=== PATIENT | female | born 1980 | race Two or more races ===

== ENCOUNTER 2019-10-13 10:35 | Inpatient (IN) | payer MEDICAID ==
[~2019-10-13] VITALS: Ht 162.6 cm; Wt 81.6 kg
[2019-10-13 10:36] VITALS: BP 112/57
[2019-10-13 11:51] LABS: BASOPHILS % (AUTO) 0.3 % (0.0-2.0); EOSINOPHILS % (AUTO) 0.2 % (0.0-4.0); HEMATOCRIT 20.7 % (36-48); LYMPHOCYTES # (AUTO) 1.7 K/uL (2.5-16.5); LYMPHOCYTES % (AUTO) 19.6 % (20.5-51.1); MEAN CORPUSCULAR HEMOGLOBIN 30 pg (27-31); MEAN CORPUSCULAR HGB CONC 34 g/dL (33-37); MEAN CORPUSCULAR VOLUME 88.7 fL (80-94); MONOCYTES # (AUTO) 0.4 K/uL (0.8-1.0); MONOCYTES % (AUTO) 4.1 % (1.7-9.3); NEUTROPHILS # (AUTO) 6.7 K/uL (1.8-7.7); NEUTROPHILS % (AUTO) 75.8 % (42.2-75.2); PLATELET COUNT (AUTO) 290 K/uL (140-450); RED BLOOD CELL COUNT(AUTO) 2.34 MIL/uL (4.20-5.40); RED CELL DISTRIBUTION WIDTH 13.1 % (11.6-13.7); WHITE BLOOD COUNT (AUTO) 8.9 K/uL (4.8-10.8)
[2019-10-13 12:08] LABS: APPEARANCE,URINE SL CLOUDY (CLEAR); BILIRUBIN,URINE NEGATIVE (NEGATIVE); BLOOD, URINE 3+ (NEGATIVE); COLOR,URINE ORANGE (YELLOW); LEUKOCYTE ESTERASE ,URINE TRACE (NEGATIVE); NITRITE, URINE NEGATIVE (NEGATIVE); UGLUCOSE NEGATIVE (NEGATIVE)
[2019-10-13 12:58] LABS: ALBUMIN 3.5 g/dL (3.4-5.0); ANION GAP 11.3 (8-16); CARBON DIOXIDE 25.8 mmol/L (21-32); CREATININE 0.9 mg/dL (0.6-1.3); FREE T4 (FREE THYROXINE) 0.88 ng/dL (0.76-1.46); POTASSIUM 4.1 mmol/L (3.5-5.1); THYROID STIMULATING HORMONE 2.18 uIU/mL (0.34-3.74); TOTAL BILIRUBIN 0.2 mg/dL (0.0-1.0)
[2019-10-13 13:12] LABS: RBC,URINE 80-100 /HPF (0-5)
[2019-10-13] MEDS ORDERED: ACETAMINOPHEN 325 MG TAB PO PRN (13:30)
[2019-10-13] MEDS ORDERED: HYDROcodone/APAP 5/325 MG 1 TAB TAB PO PRN (13:30)
[2019-10-13] MEDS ORDERED: LORazepam 2 MG/ML VIAL IM/IVP PRN (13:30)
[2019-10-13] MEDS ORDERED: DOCUSATE SODIUM 100 MG GELCAP PO PRN (13:30)
[2019-10-13] MEDS ORDERED: MORPHINE SULFATE 2 MG/ML SYR IVP PRN (13:30)
[2019-10-13] MEDS ORDERED: ONDANSETRON 4 MG/2 ML VIAL IM/IVP PRN (13:30)
[2019-10-13] MEDS ORDERED: ZOLPIDEM 5 MG TAB PO PRN (13:30)
[2019-10-13 13:33] LABS: PROTHROMBIN TIME 9.7 secs (10.8-13.4)
[2019-10-13] MEDS: NACL 0.9% 1,000 ML IV SCH (13:50)
[2019-10-13 14:11] LABS: BARBITURATE, URINE NEGATIVE ng/ml (NEG <=200); BENZODIAZEPINE, URINE NEGATIVE ng/mL (NEG <=200); CANNABINOID, URINE NEGATIVE ng/mL (NEG <=50); COCAINE, URINE NEGATIVE ng/mL (NEG <=300); OPIATE, URINE NEGATIVE ng/mL (NEG <=2000); PHENCYCLIDINE SCREEN,URINE NEGATIVE ng/mL (NEG <=25)
[2019-10-13 14:24] LABS: MAGNESIUM 1.7 mg/dL (1.8-2.4); THYROID STIMULATING HORMONE 2.32 uIU/mL (0.34-3.74)
[2019-10-13 15:30] VITALS: BP 103/60
[2019-10-13] MEDS ORDERED: MAGNESIUM OXIDE 400 MG TAB PO SCH (17:00)
[2019-10-13 20:00] VITALS: BP 100/57
[2019-10-13] MEDS ORDERED: SODIUM FERRIC GLUCONATE 125 MG in NACL 0.9% 100 ML IV SCH (21:00)
[2019-10-13] MEDS ORDERED: IBUPROFEN 800 MG TAB PO PRN (21:55)
[2019-10-13] MEDS: MISOPROSTOL 100 MCG TAB PO SCH (23:32)
[2019-10-14] VITALS: BP 108/59
[2019-10-14 04:00] VITALS: BP 104/58
[2019-10-14] MEDS: MISOPROSTOL 100 MCG TAB PO SCH ×2 (05:02→12:32)
[2019-10-14 06:20] LABS: ANION GAP 12.4 (8-16); CARBON DIOXIDE 25.3 mmol/L (21-32); CREATININE 0.9 mg/dL (0.6-1.3); POTASSIUM 3.7 mmol/L (3.5-5.1)
[2019-10-14 06:30] LABS: CHOL/HDL RATIO 4.1 (1-4.5)
[2019-10-14 06:33] LABS: BASOPHILS # (AUTO) 0.1 K/uL (0.00-0.22); BASOPHILS % (AUTO) 0.6 % (0.0-2.0); EOSINOPHILS # (AUTO) 0.1 K/uL (0-0.4); EOSINOPHILS % (AUTO) 1.5 % (0.0-4.0); HEMOGLOBIN 7.8 g/dL (12.0-16.0); LYMPHOCYTES # (AUTO) 2.8 K/uL (2.5-16.5); MEAN CORPUSCULAR HEMOGLOBIN 30 pg (27-31); MEAN CORPUSCULAR HGB CONC 34 g/dL (33-37); MEAN CORPUSCULAR VOLUME 88.3 fL (80-94); MONOCYTES # (AUTO) 0.5 K/uL (0.8-1.0); MONOCYTES % (AUTO) 6.8 % (1.7-9.3); NEUTROPHILS # (AUTO) 4.4 K/uL (1.8-7.7); NEUTROPHILS % (AUTO) 56.1 % (42.2-75.2); PLATELET COUNT (AUTO) 274 K/uL (140-450); RED CELL DISTRIBUTION WIDTH 13.1 % (11.6-13.7); WHITE BLOOD COUNT (AUTO) 7.9 K/uL (4.8-10.8)
[2019-10-14 08:00] VITALS: BP 102/60
[2019-10-14 09:15] LABS: FOLIC ACID > 20.00 ng/mL (>3.0); TRANSFERRIN 280 mg/dL (192-364)
[2019-10-14] MEDS ORDERED: LACTOBACILLUS RHAMNOSUS GG 1 EACH CAP PO SCH (11:30)
[2019-10-14 11:53] LABS: FERRITIN 5 ng/mL (15 - 150)
[2019-10-14 12:00] VITALS: BP 104/51
[2019-10-14] MEDS ORDERED: DEXTROSE 50% 50 ML SYR IVP PRN (12:00)
[2019-10-14] MEDS ORDERED: INSULIN LISPRO SLIDING SCALE 100 UNITS/ML VIAL SUBQ PRN (12:00)
[2019-10-14] MEDS: NACL 0.9% 1,000 ML IV SCH (13:30)
[2019-10-14] MEDS ORDERED: SULF-58 PO (15:15)
[2019-10-14 15:37] VITALS: BP 104/51
[2019-10-14 16:00] VITALS: BP 106/64
[2019-10-14] MEDS ORDERED: BLOOD GLUCOSE MONITORING 1 DEV DEV FS SCH (16:30)
[2019-10-15] MEDS ORDERED: NITR100C7 PO (10:06)
== END 2019-10-14 16:55 | disposition home or self-care (01) | DRG 564 ==
LOC: MED 10:35 → MTU 13:18
PROVIDERS: ADMIT General Practice; ATTEND General Practice
PROC: 30233N1 Transfusion of Nonautologous Red Blood Cells into Peripheral Vein, Percutaneous Approach (ICD-10-PCS; principal; 2019-10-13)
DX: O03.9 Complete or unspecified spontaneous abortion without complication (principal); D62 Acute posthemorrhagic anemia; E83.51 Hypocalcemia; E66.9 Obesity, unspecified; E83.42 Hypomagnesemia; N93.8 Other specified abnormal uterine and vaginal bleeding; N83.202 Unspecified ovarian cyst, left side; Z88.0 Allergy status to penicillin; Z83.3 Family history of diabetes mellitus; Z68.30 Body mass index [BMI] 30.0-30.9, adult
CPT/HCPCS: 36415; 76817; 80048; 80053; 80305; 81001; 82607; 82728; 82746; 82948; 83036; 83540; 83690; 83735; 84100; 84134; 84439; 84443; 84702; 85025; 85045; 85610; 86886; 86900; 86901; 86920; 87081; 87086; 93005; 99285; J0696; J1815; J2916; J7060; P9016; Q0092

== ENCOUNTER 2019-10-29 15:30 | Outpatient (CLI) | payer MEDICAID, SELFPAY ==
[~2019-10-29 15:30] MED LIST: NITR100C7 PO; SULF-58 PO
== END 2019-10-29 20:23 | disposition home or self-care (01) ==
LOC: MLB 15:30
PROVIDERS: ATTEND Obstetrics & Gynecology
DX: Z01.818 Encounter for other preprocedural examination (principal); Z11.59 Encounter for screening for other viral diseases
CPT/HCPCS: C9803; U0003; 36415

== ENCOUNTER 2019-11-03 10:09 | Day surgery (SDC) | payer MEDICAID ==
[~2019-11-03] VITALS: Ht 157.5 cm; Wt 72.6 kg
[2019-11-03 10:44] LABS: BASOPHILS # (AUTO) 0.1 K/uL (0.00-0.22); BASOPHILS % (AUTO) 1.1 % (0.0-2.0); EOSINOPHILS # (AUTO) 0.2 K/uL (0-0.4); EOSINOPHILS % (AUTO) 3.1 % (0.0-4.0); HEMATOCRIT 26.5 % (36-48); HEMOGLOBIN 8.6 g/dL (12.0-16.0); LYMPHOCYTES # (AUTO) 2.7 K/uL (2.5-16.5); LYMPHOCYTES % (AUTO) 41.5 % (20.5-51.1); MEAN CORPUSCULAR HEMOGLOBIN 28 pg (27-31); MEAN CORPUSCULAR HGB CONC 32 g/dL (33-37); MEAN CORPUSCULAR VOLUME 86.1 fL (80-94); MONOCYTES # (AUTO) 0.5 K/uL (0.8-1.0); MONOCYTES % (AUTO) 7.1 % (1.7-9.3); NEUTROPHILS # (AUTO) 3.1 K/uL (1.8-7.7); NEUTROPHILS % (AUTO) 47.2 % (42.2-75.2); PLATELET COUNT (AUTO) 438 K/uL (140-450); RED BLOOD CELL COUNT(AUTO) 3.08 MIL/uL (4.20-5.40); RED CELL DISTRIBUTION WIDTH 14.3 % (11.6-13.7); WHITE BLOOD COUNT (AUTO) 6.5 K/uL (4.8-10.8)
[2019-11-03 11:16] LABS: ANION GAP 12.2 (8-16); CARBON DIOXIDE 27.8 mmol/L (21-32)
[2019-11-03 11:17] LABS: CREATININE 0.8 mg/dL (0.6-1.3)
[2019-11-03] MEDS ORDERED: DEXAMETHASONE 4 MG/ML VIAL ONE (12:23)
[2019-11-03] MEDS ORDERED: PROPOFOL 200 MG/20 ML VIAL IV ONE (12:23)
[2019-11-03] MEDS ORDERED: SEVOFLURANE 250 ML BTL INH ONE (12:23)
== END 2019-11-03 14:47 | disposition home or self-care (01) ==
LOC: MMU 10:09 → MDS 10:09
PROVIDERS: ATTEND Obstetrics & Gynecology
DX: N92.0 Excessive and frequent menstruation with regular cycle (principal); N84.0 Polyp of corpus uteri; R93.89 Abnormal findings on diagnostic imaging of other specified body structures; E11.9 Type 2 diabetes mellitus without complications; Z88.0 Allergy status to penicillin; Z79.899 Other long term (current) drug therapy; Z98.890 Other specified postprocedural states; Z83.3 Family history of diabetes mellitus
CPT/HCPCS: 36415; 58558; 80048; 81025; 85025; 86886; 86900; 86901; 88305; J1100; J2704; J7120

== ENCOUNTER 2019-12-30 05:08 | Inpatient (IN) | payer MEDICAID, SELFPAY ==
[~2019-12-30] VITALS: Ht 152.4 cm; Wt 79.4 kg
[2019-12-30] MEDS ORDERED: CLINDAMYCIN 900 MG in DEXTROSE 5% 100 ML IV SCH (05:20)
[2019-12-30 06:08] LABS: APPEARANCE,URINE CLOUDY (CLEAR); BILIRUBIN,URINE 1+ (NEGATIVE); BLOOD, URINE 3+ (NEGATIVE); COLOR,URINE BROWN (YELLOW); LEUKOCYTE ESTERASE ,URINE NEGATIVE (NEGATIVE); NITRITE, URINE POSITIVE (NEGATIVE); PH,URINE 5.5 (5.0-9.0); UGLUCOSE NEGATIVE (NEGATIVE)
[2019-12-30 06:09] LABS: BASOPHILS # (AUTO) 0.1 K/uL (0.00-0.22); BASOPHILS % (AUTO) 0.7 % (0.0-2.0); EOSINOPHILS # (AUTO) 0.3 K/uL (0-0.4); EOSINOPHILS % (AUTO) 4.2 % (0.0-4.0); HEMATOCRIT 32.8 % (36-48); HEMOGLOBIN 10.7 g/dL (12.0-16.0); LYMPHOCYTES # (AUTO) 3.1 K/uL (2.5-16.5); LYMPHOCYTES % (AUTO) 44.8 % (20.5-51.1); MEAN CORPUSCULAR HEMOGLOBIN 27 pg (27-31); MEAN CORPUSCULAR HGB CONC 33 g/dL (33-37); MEAN CORPUSCULAR VOLUME 83.7 fL (80-94); MONOCYTES # (AUTO) 0.6 K/uL (0.8-1.0); NEUTROPHILS # (AUTO) 2.9 K/uL (1.8-7.7); NEUTROPHILS % (AUTO) 42.3 % (42.2-75.2); PLATELET COUNT (AUTO) 299 K/uL (140-450); RED BLOOD CELL COUNT(AUTO) 3.91 MIL/uL (4.20-5.40); RED CELL DISTRIBUTION WIDTH 17.2 % (11.6-13.7); WHITE BLOOD COUNT (AUTO) 6.9 K/uL (4.8-10.8)
[2019-12-30] MEDS ORDERED: CLINDAMYCIN 900 MG/6 ML VIAL IV ONE ×2 (06:10→21:51)
[2019-12-30 06:24] LABS: RBC,URINE TOO NUMEROUS TO COUN /HPF (0-5); WBC,URINE NONE SEEN /HPF (0-5)
[2019-12-30 06:25] LABS: YEAST,URINE Few /HPF (None Seen)
[2019-12-30 06:48] LABS: ALBUMIN 3.7 g/dL (3.4-5.0); ANION GAP 16.5 (8-16); CARBON DIOXIDE 23.3 mmol/L (21-32); CREATININE 0.8 mg/dL (0.6-1.3); POTASSIUM 3.8 mmol/L (3.5-5.1); TOTAL BILIRUBIN 0.3 mg/dL (0.0-1.0)
[2019-12-30] MEDS ORDERED: MEPERIDINE 25 MG/ML SYR IVP PRN (07:20)
[2019-12-30] MEDS ORDERED: ONDANSETRON 4 MG/2 ML VIAL IVP PRN (07:20)
[2019-12-30] MEDS ORDERED: MORPHINE SULFATE 4 MG/ML SYR ONE (07:22)
[2019-12-30] MEDS ORDERED: PROPOFOL 200 MG/20 ML VIAL IV ONE (07:22)
[2019-12-30] MEDS ORDERED: ROCURONIUM 50 MG/5 ML VIAL IV ONE (07:22)
[2019-12-30] MEDS ORDERED: SUCCINYLCHOLINE CHLORIDE 200 MG/10 ML VIAL IVP ONE (07:22)
[2019-12-30] MEDS ORDERED: SEVOFLURANE 250 ML BTL INH ONE (07:22)
--- NOTE | 2019-12-30 08:59 | NUR ---
PATIENT HAS BEEN SCREENED AND CATEGORIZED LOW NUTRITION RISK. PATIENT WILL BE SEEN WITHIN 7 DAYS OF ADMISSION. 01/05/[address]
[2019-12-30 10:07] VITALS: BP 118/70
--- NOTE | 2019-12-30 10:07 | NUR ---
RECEIVED ENDORSEMENT FROM OR NURSE THIS 39 YR OLD FEMALE, LAO SPEAKING, S/P SUPRACERVICAL ABDOMINAL HYSTERECTOMY AND BILATERAL SALPHINGOECTOMY, ALERT, AWAKE, ORIENTEDX4, BREATHING SPONTANEOUSLY AT ROOM AIR, BILATERAL CHEST CLEAR, SATURATING AT 97%, WITH IV CANNULA 20 AT LEFT CEPHALIC VEIN NOTED, SKIN WARM, PALE AND DRY, DRY AND INTACT DRESSING POST OPERATIVE SITE NOTED, WITH CARRILLO CATHER F16 ATTACHED TO URINE BAG DRAINING TO A CLEAR YELLOW URINE NOTED. SAFETY MEASURES PROVIDED AND INSTRUCTED TO PRESS THE CALL AGARWAL NEEDED.
[2019-12-30] MEDS: NACL 0.9% 1,000 ML IV SCH ×3 (10:15→23:56)
[2019-12-30] MEDS: HYDROmorphone 1 MG/ML AMP IVP PRN ×3 (10:28→22:13)
--- NOTE | 2019-12-30 10:29 | NUR ---
COMPLAINED OF MODERATE POST OPERATIVE SITE PAIN, FACIAL GRIMACED NOTED. PRN MEDICATION GIVEN ORDERED GIVEN.
--- NOTE | 2019-12-30 11:31 | NUR ---
VERBALIZED MINIMAL POST OP PAIN AFTER 1 HOUR GIVING THE ANALGESIC, CONTINUE MONITOR.
--- NOTE | 2019-12-30 12:10 | NUR ---
VITAL SIGNS TAKEN AND RECORDER, WITH IN NORMAL RANGE.
--- NOTE | 2019-12-30 13:57 | NUR ---
WATER OFFERED, ABLE SIPS AND TOLERATED WELL. POST OP MINIMAL PAIN CLAIMED AGGRAVATES WHEN MOVING.
--- NOTE | 2019-12-30 15:11 | NUR ---
PATIENT IS CURRENTLY AWAKE WITH NO SIGNS OF DISTRESS AT THIS TIME. PATIENT STATES THAT SHE FEELS THAT HER BLADDER IS FULL. SPREAD PATIENTS LEGS AND READJUSTED CARRILLO CATHETER AND URINE STARTED TO COME OUT. SAFETY MEASURES IN PLACE AND WILL CONTINUE TO MONITOR PLAN OF CARE.
[2019-12-30 16:00] VITALS: BP 134/75
--- NOTE | 2019-12-30 17:29 | NUR ---
ADMINISTERED PAIN MEDICATION FOR ABD PAIN. PATIENT STATES THAT SHE WANTS SOMETHING WARM FOR HER THROAT. TEA HAS BEEN GIVEN. SAFETY MEASURES IN PLACE AND WILL REASSESS PAIN LEVEL IN ONE HOUR.
--- NOTE | 2019-12-30 19:20 | NUR ---
ENDORSED TO MILL HAND NURSE. PATIENT IS IN STABLE CONDITION AND LAYING IN BED AWAKE.
--- NOTE | 2019-12-30 19:21 | NUR ---
RECEIVED REPORT FROM AM RN PT IS STABLE IN NO DISTRESS. WILL CONTINUE WITH POC.
--- NOTE | 2019-12-30 22:20 | NUR ---
PT IS LAYING SUPINE RESPIRATION EVEN AND UNLABORED . PT REPORTED DISCOMFORT /10 TO SURGICAL SITE AND WAS GIVEN DILAUDID 0.5 MG PER MD ORDER. SURGICAL SITE DRESSING IS CLEAN AND DRY, DOLLY IN PLACE NO BLEEDING NO DISCHARGE. PT EXPRESSED CONCERN WITH BEING UNABLE TO VOID HOWEVER CARRILLO CATH DRAINING AND EMPTIED 1000 ML. CARRILLO CATH READJUSTED AND CHECKED FOR LEAKING NO LEAKING OBSERVED PT IS DRY, WILL CONTINUE TO MONITOR TO MAKE SURE IT IS DRAINING.
--- NOTE | 2019-12-30 23:30 | NUR ---
PT IS RESTING IN BED SUPINE RESPIRATION EVEN AND UNLABORED, IN NO DISTRESS. SP02 AT 95% RA. MUSCLES ARE RELAXED EYES CLOSED. CARRILLO CATHETER IS DRAINING YELLOW URINE WITH 200ML IN BAG. WILL CONTINUE TO MONITOR. ALL NEEDS MET AT THIS TIME.
[2019-12-31] VITALS: BP 122/71
--- NOTE | 2019-12-31 00:20 | NUR ---
PT IS RESTING IN BED SUPINE IN NO DISTRESS. RESPIRATION EVEN AND UNLABORED. V/S: 97.9, 80, 16, 122/71,96 % RA PAIN 0/10. REMAINS ON IV FLUIDS NS AT 120 ML/HR AND CARRILLO CATHETER DRAINING YELLOW URINE. ALL NEEDS MET AT THIS TIME. WILL CONTINUE TO MONITOR.
--- NOTE | 2019-12-31 02:00 | NUR ---
PT RESTING IN BED IN NO DISTRESS. RESPIRATION EVEN AND UNLABORED SPO2 96% RA WILL CONTINUE TO MONITOR
[2019-12-31] MEDS: HYDROmorphone 1 MG/ML AMP IVP PRN (03:02)
[2019-12-31] MEDS: NACL 0.9% 1,000 ML IV SCH ×2 (03:04→16:36)
--- NOTE | 2019-12-31 04:10 | NUR ---
PT RESTING IN BED IN NO DISTRESS. RESPIRATION EVEN AND UNLABORED. V/S: 98.6., 89, 18, 128/67, 96 % RA PT. REPORTED PAIN 7/10 AT 0305 AND RECEIVED DILAUDID 0.5MG PER MD ORDER. CURRENTLY PAIN 0/10. PRN EFFECTIVE. PT RESTING WITH EYES CLOSED NO INDICATOR OF PAIN. CALL LIGHT WITHIN REACH. CONTINUED ON IVF NS AT 120ML/HR. WILL CONTINUE TO MONITOR.
--- NOTE | 2019-12-31 06:31 | NUR ---
PT RESTING IN BED AWAKE IN NO DISTRESS. DENIES ANY PAIN AT THIS TIME. ASSISTED WITH ADL'S CALL LIGHT WITHIN REACH. WILL CONTINUE TO MONITOR.
--- NOTE | 2019-12-31 07:00 | NUR ---
RECEIVED PATIENT FROM MANGANESE HEATER NURSE. PATIENT IS CURRENTLY AWAKE AND LAYING IN BED WITH NO SIGNS OF DISTRESS. RESPIRATIONS ARE EVEN AND UNLABORED ON ROOM AIR WITH NO DIFFICULTIES BREATHING. SKIN IS INTACT MINUS LOWER ABDOMINAL SURGICAL INCISION WITH DRESSING DRY AND INTACT. PATIENT DOES NOT COMPLAIN OF ANY PAIN AT THIS TIME, SAFETY MEASURES IN PLACE AND WILL CONTINUE TO MONITOR.
--- NOTE | 2019-12-31 07:10 | NUR ---
REPORT GIVEN TO AM RN FOR CONTINUITY OF CARE. PT IS STABLE ALL NEEDS ARE MET AT THIS TIME.
[2019-12-31 08:00] VITALS: BP 121/76
[2019-12-31] MEDS ORDERED: BENZOCAINE/MENTHOL 1 LOZ MM PRN (08:05)
[2019-12-31] MEDS: MORPHINE SULFATE 2 MG/ML SYR IVP PRN ×2 (08:52→21:14)
--- NOTE | 2019-12-31 08:59 | NUR ---
ADMINISTERED PAIN MEDICATION PER ORDER AND TOLERATED WELL. PATIENT ASKED IF SHE CAN WALK TO THE RESTROOM. ORDER HAS ALSO BEEN PLACED TO ASIYA CARRILLO. SAFETY MEASURES IN PLACE AND WILL CONTINUE TO MONITOR.
[2019-12-31] MEDS: POLYETHYLENE GLYCOL 17 GM/PKT PO SCH ×2 (09:11→20:07)
--- NOTE | 2019-12-31 09:25 | NUR ---
ADMINISTERED MEDICATIONS PER ORDER AND TOLERATED WELL. CARRILLO HAS BEEN TAKEN OUT WITH NO COMPLAINTS OF PAIN. PATIENT IS CURRENTLY AWAKE AND SITTING UP IN BED. SAFETY MEASURES IN PLACE AND WILL CONTINUE TO MONITOR PLAN OF CARE.
[2019-12-31] MEDS ORDERED: FLUCONAZOLE 200 MG/NS PREMIX 100 ML IV SCH (09:30)
--- NOTE | 2019-12-31 10:20 | NUR ---
PATIENT NEEDED ASSISTANCE WITH GOING TO THE RESTROOM. PATIENT ALSO ASKED FOR A NEW MENSTRUAL PAD WELL DISPOSABLE UNDERWEAR. SAFETY MEASURES IN PLACE AND WILL CONTINUE TO MONITOR.
--- NOTE | 2019-12-31 10:57 | NUR ---
SENIOR MOBILE APPLICATION DEVELOPER NOTE: Patient's Orientation Unable To Assess Information Provided By MICHELE MONDRAGON Comments SW WAS UNABLE TO MEET PATIENT AT BEDSIDE DUE TO MEDICAL CONDITION. Senior Quality Manager, Realtionship and Phone Number MICHELE LEUNGN [phone] Healthcare Power of Information Delivery Analyst No Does Patient Have a POLST No Identifying Problems No Social Work Triggers Is A Social Work Consult Needed No Mandate Report Filed No Explanation Of Identifying Problems PATIENT IS A 39-YEAR-OLD FEMALE ADMITTED FOR MENORRHAGIA. PATIENT HAS NO PERTINENT PMHX. Admitted From Home Pre-Admission Level Of Functioning Status Independent/Ambulatory Prior Resources/Services Used In Last 12 Months No Prior Resources Used Prior DME No Prior DME Used Living Situation Apartment Lives With Family Patient Had Caregiver No Home Support No Caregiver Issues Financial Issues No Known Financial Issue Referral To The Financial Counselor Needed No Factors/Needs No D/C Needs Identified Pt/Rep Participated In Discharge Plan Yes Patient/Family Agress With Discharge Plan Yes Discharge Plan Comments TENTATIVE DISCHARGE PLAN IS FOR PATIENT TO RETURN HOME. DC Plan Status Initiated
--- NOTE | 2019-12-31 11:47 | NUR ---
DC [age] YRS OLD FEMALE PATIENT WAS ADMITTED FROM HOME WITH A DX OF MENORRHAGIA . PT HAS A HX OF UNRESPONSIVE TO MEDICAL TREATMENT ,SYMPTOMATIC ANEMIA. DR ANDERSEN PERFORMED SUPRACERVICAL HYSTERECTOMY. PT IS POD #1 TOLERATED WELL. DC PLAN TO GO HOME WHEN STABLE CM TO FOLLOW
--- NOTE | 2019-12-31 12:57 | NUR ---
PATIENT ASKED FOR ASSISTANCE TO USE THE RESTROOM. PATIENT STATES THAT SHE IS IN A LOT OF PAIN. PAIN MEDICATION IS NOT DUE UNTIL 3. SAFETY MEASURES IN PLACE AND WILL CONTINUE TO MONITOR.
--- NOTE | 2019-12-31 14:36 | NUR ---
PATIENT ASKED FOR HELP TO USE THE RESTROOM. PATIENT STATES THAT SHE IS IN PAIN AT THIS TIME. SAFETY MEASURES IN PLACE AND WILL CONTINUE TO MONITOR.
--- NOTE | 2019-12-31 15:08 | NUR ---
ADMINISTERED PAIN MEDICATION FOR ABD PAIN OF 7/10. PATIENT STATES THAT SHE WANTS TO GO HOME. SAFETY MEASURES IN PLACE AND WILL CONTINUE TO MONITOR.
--- NOTE | 2019-12-31 15:34 | NUR ---
ENDORSED PATIENT TO DAY SHIFT NURSE DARYA. PATIENT IS CURRENTLY WALKING AROUND ROOM WITH NO SIGNS OF DISTRESS. PATIENT STATES THAT SHE WOULD LIKE TO GO HOME. SAFETY MEASURES IN PLACE AND WILL CONTINUE TO MONITOR.
--- NOTE | 2019-12-31 15:46 | NUR ---
RECEIVED PATIENT FROM DAY SHIFT NURSE. PATIENT IS CURRENTLY AWAKE AND LAYING IN BED WITH NO SIGNS OF DISTRESS. RESPIRATIONS ARE EVEN AND UNLABORED ON ROOM AIR WITH NO DIFFICULTIES BREATHING. SKIN IS INTACT MINUS LOWER ABDOMINAL SURGICAL INCISION WITH DRESSING DRY AND INTACT. PATIENT DOES NOT COMPLAIN OF ANY PAIN AT THIS TIME, SAFETY MEASURES IN PLACE AND WILL CONTINUE TO MONITOR.
[2019-12-31 16:16] VITALS: BP 121/83
--- NOTE | 2019-12-31 16:26 | NUR ---
PT AMBULATING AROUND ROOM. NO ACUTE DISTRESS NOTED. PT OCCASIONALLY USING INCENTIVE SPIROMETER. WILL CONTINUE TO MONITOR.
[2019-12-31] MEDS: NITROFURANTOIN 100 MG CAP PO SCH (16:42)
--- NOTE | 2019-12-31 16:51 | NUR ---
ADMINISTERED SCHEDULED MEDICATIONS. HUNG NEW NS BAG. PT AMBULATING AROUND ROOM. NO ACUTE DISTRESS NOTED.
--- NOTE | 2019-12-31 18:57 | NUR ---
PT AMBULATED TO BATHROOM. NO ACUTE DISTRESS NOTED. WILL CONTINUE TO MONITOR.
--- NOTE | 2019-12-31 19:15 | NUR ---
ENDORSED PT TO NIGHT RN, TERRELL, FOR CONTINUITY OF CARE. PT IN STABLE POSITION, SITTING ON SIDE OF BED. NO ACUTE DISTRESS NOTED.
--- NOTE | 2019-12-31 19:16 | NUR ---
RECEIVED PT IN STABLE CONDITION FROM AM NURSE. AWAKE,ALERT AND ORIENTED X4. MED SURG PT. WITH SOME DISCOMFORT NOTED DUE TO C/O GAS. ENCOURAGED TO AMBULATE WHICH SHE ALREADY DID. HAS IVF INFUSING WELL ON THE LT HAND G322. ABDOMINAL DRESSING CLEAN AND DRY. FREQ ROUNDS NEEDED. BED ON LOW POSITION. SIDE RAILS UP X2. CALL LIGHT WIHTIN EASY REACH. WILL CONTINUE TO MONITOR.
--- NOTE | 2019-12-31 20:00 | NUR ---
MADE ROUNDS. PT STANDING UP. C/O GAS. ENCOURAGED TO AMBULATE MORE. VERBALIZED UNDERSTANDING.
--- NOTE | 2019-12-31 21:14 | NUR ---
PT C/O POST OP PAIN. MEDICATE ORDERED. WILL CONTINUE TO MONITOR.
--- NOTE | 2019-12-31 21:19 | NUR ---
PT ALSO C/O SORE THROAT. CEPACOL LOZENGES GIVEN ORDERED. WILL CONTINUE TO MONITOR.
--- NOTE | 2019-12-31 22:14 | NUR ---
MADE ROUNDS.PT ASLEEP. NO S/S OF ANY DISCOMFORT NOR PAIN NOTED. WILL CONTINUE TO MONITOR.
[2020-01-01] VITALS: BP 113/66
--- NOTE | 2020-01-01 00:30 | NUR ---
MADE ROUNDS. ASLEEP. NOS/S OF ANY DISCOMFORT /PAIN NOTED.
--- NOTE | 2020-01-01 02:00 | NUR ---
M,CANDIDO ROUNDS. PT IS SLEEPING WELL. NO S/S OF PAIN NOTED.
[2020-01-01] MEDS: NACL 0.9% 1,000 ML IV SCH ×2 (02:50→09:16)
[2020-01-01 04:20] VITALS: BP 125/82
--- NOTE | 2020-01-01 04:20 | NUR ---
PT GOT UP TO THE BATHROOM ,VOIDED AND PASSED SOME GAS. C/O PAIN AFTER. WILL MEDICATE ORDERED.
[2020-01-01] MEDS: MORPHINE SULFATE 2 MG/ML SYR IVP PRN ×2 (04:23→10:42)
--- NOTE | 2020-01-01 05:23 | NUR ---
MADE ROUNDS. PT IS ASLEEP. NO MORE S/S OF ANY PAIN NOTED.
--- NOTE | 2020-01-01 07:00 | NUR ---
CHECKED ON PT. SLEEPING. IVF STILL INFUSING WELL . WILL ENDORSED PT TO AM NURSE IN STABLE CONDITION.
--- NOTE | 2020-01-01 07:15 | NUR ---
RECEIVED PT IN STABLE CONDITION FROM ARMHOLE BASTER HAND NURSE FOR CONTINUITY OF CARE. AAOX4. MED SURG PT. WITH SOME DISCOMFORT NOTED DUE TO C/O GAS. ENCOURAGED TO AMBULATE WHICH SHE ALREADY DID. RESPIRATIONS EVEN AND UNLABORED ON RA. HAS IVF INFUSING WELL ON THE LT HAND G22. ABDOMINAL DRESSING CLEAN AND DRY. FREQ ROUNDS NEEDED. BED ON LOW POSITION. SIDE RAILS UP X2. POC DISCUSSED. CALL LIGHT WITHIN EASY REACH. WILL CONTINUE TO MONITOR.
--- NOTE | 2020-01-01 07:15 | NUR ---
RECEIVED PT IN STABLE CONDITION FROM COMMUNITY SERVICE SPECIALIST NURSE FOR CONTINUITY OF CARE. AAOX4. MED SURG PT. WITH SOME DISCOMFORT NOTED DUE TO C/O GAS. ENCOURAGED TO AMBULATE WHICH SHE ALREADY DID. RESPIRATIONS EVEN AND UNLABORED ON RA. HAS IVF INFUSING WELL ON THE LT HAND G22. ABDOMINAL DRESSING CLEAN AND DRY. FREQ ROUNDS NEEDED. BED ON LOW POSITION. SIDE RAILS UP X2. POC DISCUSSED. CALL LIGHT WITHIN EASY REACH. WILL CONTINUE TO MONITOR.
[2020-01-01 08:00] VITALS: BP 115/75
[2020-01-01] MEDS: NITROFURANTOIN 100 MG CAP PO SCH (08:51)
[2020-01-01] MEDS: POLYETHYLENE GLYCOL 17 GM/PKT PO SCH (08:51)
--- NOTE | 2020-01-01 08:51 | NUR ---
MORNING MEDICATIONS GIVEN. NO SIGNS OF DISTRESS NOTED. PATIENT VERBALIZES INCISIONAL PAIN OF 8/10. INFORMED PATIENT THAT PAIN MEDICATION DUE AFTER 10AM, PATIENT VERBALIZES UNDERSTANDING. V/S TAKEN AND WNL. WILL CONTINUE TO MONITOR.
[2020-01-01 10:21] VITALS: BP 115/75
--- NOTE | 2020-01-01 10:42 | NUR ---
MORPHINE IVP GIVEN FOR INCISIONAL PAIN OF 8/10. NO SIGNS OF DISTRESS NOTED. BP 124/74, HR 73. DISCHARGE INSTRUCTIONS GIVEN WITH CONCRETE BUILDING ASSEMBLER, GUADALUPE, #[id number]. PATIENT VERBALIZES UNDERSTANDING. IV SITE REMOVED. WILL CONTINUE TO MONITOR.
--- NOTE | 2020-01-01 11:20 | NUR ---
PATIENT DISCHARGED TO HOME WITH SPOUSE VIA WHEELCHAIR. NO SIGNS OF DISTRESS NOTED. PATIENT VERBALIZES UNDERSTANDING OF DISCHARGE INSTRUCTIONS, DISCHARGE PAPERWORKS ARE WITH PATIENT. IV SITE AND ARMBANDS REMOVED.
== END 2020-01-01 11:20 | disposition home or self-care (01) | DRG 513 ==
LOC: MFCC 05:08 → MTU 10:10
PROVIDERS: ADMIT Obstetrics & Gynecology; ATTEND Obstetrics & Gynecology
PROC: 0UT90ZL Resection of Uterus, Supracervical, Open Approach (ICD-10-PCS; 2019-12-30)
PROC: 0UB70ZZ Excision of Bilateral Fallopian Tubes, Open Approach (ICD-10-PCS; 2019-12-30)
PROC: 0UT94ZL Resection of Uterus, Supracervical, Percutaneous Endoscopic Approach (ICD-10-PCS; principal; 2019-12-30 07:30)
DX: N94.6 Dysmenorrhea, unspecified (principal); N92.0 Excessive and frequent menstruation with regular cycle; N39.0 Urinary tract infection, site not specified; E66.9 Obesity, unspecified; Z68.34 Body mass index [BMI] 34.0-34.9, adult; Z71.3 Dietary counseling and surveillance; D62 Acute posthemorrhagic anemia; Z88.0 Allergy status to penicillin; Z88.8 Allergy status to other drugs, medicaments and biological substances; Z20.828 Contact with and (suspected) exposure to other viral communicable diseases
CPT/HCPCS: 36415; 71045; 80053; 81001; 81025; 85025; 86886; 86900; 86901; 87081; 87086; 88307; 93005; J0330; J1170; J1450; J2270; J2704; J3490; J7030; J7120; Q0092; U0003-CS